=== PATIENT | male | born 1965 | race Caucasian/White ===

== ENCOUNTER 2016-05-26 18:00 | Emergency (ER) | payer BC ==
[~2016-05-26] VITALS: Ht 160 cm; Wt 87.6 kg
[2016-05-26 18:02] VITALS: TEMP 36.6; Ht 160 cm; Wt 87.6 kg
--- NOTE | 2016-05-26 18:20 | EMERGENCY ROOM VISIT NOTE ---
History Report prepared by Mark: Zia Hathaway Under the Supervision of: Dr. Dewayne Roberts D.O. First contact with patient: 18:04 Chief Complaint: HEAD PAIN Stated Complaint: STABBING PAIN IN HEAD, FEVER History of Present Illness The patient is a 50 year old male who presents to the Emergency Room with complaints of an intermittent "stabbing" pain in the left side of his head/ rastafari that began 7 days prior to arrival. The patient states that his headache comes on suddenly and only lasts a couple of seconds. He claims that his symptoms began 8 days ago when he started to develop flu-like symptoms. His symptoms began with chills and a slight fever. His fever has persistent since last Wednesday, and his symptoms caused him to take 3 days off of work last week. The patient went to [facility] last night where he had a fever of 101. The physician there stated he may have Temporal Arteritis. He states that Ibuprofen has been improving his pain over the past week. The patient denies any recent neck stiffness, rashes, weakness in the arms/legs, or vision trouble. He is not experiencing his head pain currently. Source of History: patient Onset: 7 days [employer] Position: head Quality: stabbing Timing: intermittent Modifying Factors (Relieving): ibuprofen Associated Symptoms: No neck pain, No numbness, No rash, No weakness Review of Systems See HPI for pertinent positives & negatives. A total of 10 systems reviewed and were otherwise negative. Past Medical & Surgical No pertinent past medical/surgical histories. Family History Cancer Diabetes mellitus Social History Smoking Status: Never Smoker Drug Use: none Marital Status: single Housing Status: lives alone Occupation Status: employed Current/Historical Medications Scheduled Omeprazole (Prilosec), 20 MG PO DAILY Prednisone (Prednisone Tab), 60 MG PO DAILY Allergies Coded Allergies: No Known Allergies (Unverified , 05/26/16) Physical Exam Vital Signs Date Time Temp Pulse Resp B/P Pulse Ox O2 Delivery O2 Flow Rate FiO2 05/26/16 19:54 80 20 171/118 98 05/26/16 18:02 36.6 119 18 187/109 96 Room Air Physical Exam GENERAL: Patient is awake, alert, and in no acute distress. Patient is resting comfortably and showing no signs of anxiety EYES: The conjunctivae are clear. The pupils are round and reactive. EARS, NOSE, MOUTH AND THROAT: The nose is without any evidence of any deformity. Mucous membranes are moist tongue is midline NECK: The neck is nontender and supple. RESPIRATORY: Normal respiratory effort is noted there is no evidence of wheezing rhonchi or rales CARDIOVASCULAR: Regular rate and rhythm noted there no murmurs rubs or gallops normal S1 normal S2 GASTROINTESTINAL: The abdomen is soft. Bowel sounds are present in all quadrants. Abdomen is nontender MUSCULOSKELETAL/EXTREMITIES: There is no evidence of gross deformity full range of motion is noted in the hips and shoulders SKIN: There is no obvious evidence of any rash. There are no petechiae, pallor or cyanosis noted. NEUROLOGIC: Patient is awake alert and oriented x3 strength is symmetric patellar reflexes are 2+ bilaterally Medical Decision & Procedures ER Provider Diagnostic Interpretation: X ray results and stated below per my interpretation and radiology interpretation. Other radiology results per my review and radiologist interpretation: CT OF THE HEAD WITHOUT CONTRAST CLINICAL HISTORY: Left-sided headache. COMPARISON STUDY: No previous studies for comparison. CT DOSE: 537.48 mGy.cm TECHNIQUE: Helical axial images of the head were obtained without IV contrast. Automated exposure control was utilized for the study. FINDINGS: No acute intracranial hemorrhage, midline shift or mass effect is present. Ventricular system is normal. The basilar cisterns are patent. There are no extra-axial collections. Huddleston-white differentiation is maintained. There are no findings to suggest acute dural sinus thrombosis or acute territorial infarct. No calvarial abnormalities are present. Visualized portions of the sinuses and mastoid air cells are clear. IMPRESSION: No acute intracranial findings. Electronically signed by: Tony Lemon M.D. 05/26/2016 7:02 PM Dictated Date/Time: 05/26/2016 6:58 PM Laboratory Results 05/26/16 18:30 Red Blood Count 4.28, Mean Corpuscular Volume 90.9, Mean Corpuscular Hemoglobin 32.0, Mean Corpuscular Hemoglobin Concent 35.2, Mean Platelet Volume 10.6, Neutrophils (%) (Auto) 63.2, Lymphocytes (%) (Auto) 21.2, Monocytes (%) (Auto) 13.3, Eosinophils (%) (Auto) 1.8, Basophils (%) (Auto) 0.2, Neutrophils # (Auto ) 5.49, Lymphocytes # (Auto) 1.85, Monocytes # (Auto) 1.16, Eosinophils # (Auto ) 0.16, Basophils # (Auto) 0.02 05/26/16 18:30 Test 05/26/16 18:30 White Blood Count 8.71 K/uL (4.8-10.8) Red Blood Count 4.28 M/uL (4.7-6.1) Hemoglobin 13.7 g/dL (14.0-18.0) Hematocrit 38.9 % (42-52) Mean Corpuscular Volume 90.9 fL (80-100) Mean Corpuscular Hemoglobin 32.0 pg (25-34) Mean Corpuscular Hemoglobin Concent 35.2 g/dl (32-36) Platelet Count 335 K/uL (130-400) Mean Platelet Volume 10.6 fL (7.4-10.4) Neutrophils (%) (Auto) 63.2 % Lymphocytes (%) (Auto) 21.2 % Monocytes (%) (Auto) 13.3 % Eosinophils (%) (Auto) 1.8 % Basophils (%) (Auto) 0.2 % Neutrophils # (Auto) 5.49 K/uL (1.4-6.5) Lymphocytes # (Auto) 1.85 K/uL (1.2-3.4) Monocytes # (Auto) 1.16 K/uL (0.11-0.59) Eosinophils # (Auto) 0.16 K/uL (0-0.5) Basophils # (Auto) 0.02 K/uL (0-0.2) RDW Standard Deviation 41.7 fL (36.4-46.3) RDW Coefficient of Variation 12.6 % (11.5-14.5) Immature Granulocyte % (Auto) 0.3 % Immature Granulocyte # (Auto) 0.03 K/uL (0.00-0.02) Erythrocyte Sedimentation Rate 80 mm/hr (0-14) Anion Gap 10.0 mmol/L (3-11) Est Creatinine Clear Calc Drug Dose 84.5 ml/min Estimated GFR () 99.8 Estimated GFR (Non- 86.2 BUN/Creatinine Ratio 11.1 (10-20) Calcium Level 9.2 mg/dl (8.5-10.1) Total Bilirubin 0.5 mg/dl (0.2-1) Direct Bilirubin 0.2 mg/dl (0-0.2) Aspartate Amino Transf (AST/SGOT) 20 U/L (15-37) Alanine Aminotransferase (ALT/SGPT) 37 U/L (12-78) Alkaline Phosphatase 93 U/L (45-117) C-Reactive Protein 9.21 mg/dl (0-0.29) Total Protein 8.1 gm/dl (6.4-8.2) Albumin 3.6 gm/dl (3.4-5.0) Laboratory results per my review. Medications Administered Medications (Trade) Dose Ordered Sig/Wilfrid Route Start Time Stop Time Status Last Admin Dose Admin Prednisone (PredniSONE TAB) 60 mg NOW STAT PO 05/26/16 19:30 05/26/16 19:31 DC 05/26/16 19:53 60 MG Pantoprazole Sodium (Protonix Tab) 40 mg NOW STAT PO 05/26/16 19:30 05/26/16 19:31 DC 05/26/16 19:53 40 MG ED Course 1804: The patient was evaluated in room A9. A complete history and physical examination were performed. 1929: Ordered Protonix 40 mg PO, Prednisone 60 mg PO. 1935: Upon reevaluation, the patient is resting comfortably. I discussed the results and treatment plan with him. He verbalized agreement of the treatment plan. The patient was discharged home. Medical Decision The patient's history was concerning for headache. Differential diagnosis: Etiologies such as migraine headache, meningitis, sinusitis, CO exposure, ICH, SAH, infection, tumor, headache, sinus thrombosis, arterial dissection, as well as others were entertained. Nursing notes reviewed. The patient is a 50-year-old male who presented to the emergency department for evaluation of headache. The patient had a gradual onset of headache which was reproducible with palpation over the left temporal artery. The patient was seen at [facility] initially was told to go to the emergency department but he waited another day before coming to the emergency department. He has no visual complaints or focal neurologic deficits. His pain is even minimal this time. He was found have an elevated sedimentation rate. I discussed the patient's laboratory and radiographic studies with him. I discussed follow-up with the patient and arranged follow-up with the on-call general surgeon. He was started on a course of steroids. He was encouraged to return the emergency Department immediately if symptoms change worsen or the need arises. Otherwise she was encouraged to follow-up with the general surgeon for temporal artery biopsy. Impression Primary Impression: Left-sided headache Additional Impression: suspected temporal arteritis Scribe Attestation The scribe's documentation has been prepared under my direction and personally reviewed by me in its entirety. I confirm that the note above accurately reflects all work, treatment, procedures, and medical decision making performed by me. Departure Information Dispostion Home / Self-Care Prescriptions Prednisone (Prednisone Tab) 20 Mg Tab 60 MG PO DAILY, #90 TAB decrease dose to 50 mg PO Daily after 2 weeks Prov: Dewayne Roberts, DO 05/26/16 Omeprazole (Prilosec) 20 Mg Capcr 20 MG PO DAILY, #30 CAP Prov: Dewayne Roberts, DO 05/26/16 Referrals No Doctor, Assigned (PCP) Forms HOME CARE DOCUMENTATION FORM, IMPORTANT VISIT INFORMATION, WORK / SCHOOL INSTRUCTIONS Patient Instructions My [facility] Additional Instructions Call the general surgeon to schedule a follow-up appointment for this week. I would also recommend scheduling an appointment with a primary care physician as well this week. I would recommend starting the prednisone 60 milligrams every day for 2 weeks. Decrease this dose to 50 milligrams a day for 2 more weeks. You 'll need to be on the steroids for even longer and I would recommend further tapering to be done by the general surgeon once you have been seen. Continue all other medications as prescribed. Rest and avoid any strenuous activity. Return to the emergency department immediately if symptoms change worsen or the need arises. Specifically if he develop any other neurologic symptoms such as vision loss or weakness in the arms or legs. Problem Qualifiers
[2016-05-26 18:48] LABS: BASO % 0.2 %; BASO ABS # 0.02 K/uL (0-0.2); COMPLETE YES; EOS % 1.8 %; HEMATOCRIT 38.9 % (42-52); IG% 0.3 %; LYMPH % 21.2 %; LYMPH ABS # 1.85 K/uL (1.2-3.4); MEAN CELL VOLUME 90.9 fL (80-100); MEAN CORPUSCULAR HGB CONC 35.2 g/dl (32-36); MEAN PLATELET VOLUME 10.6 fL (7.4-10.4); MONO % 13.3 %; NEUT % 63.2 %; PLATELET COUNT 335 K/uL (130-400); RED BLOOD COUNT 4.28 M/uL (4.7-6.1); WHITE BLOOD COUNT 8.71 K/uL (4.8-10.8)
--- NOTE | 2016-05-26 19:04 | DIAGNOSTIC IMAGING REPORT ---
CT OF THE HEAD WITHOUT CONTRAST CLINICAL HISTORY: Left-sided headache. COMPARISON STUDY: No previous studies for comparison. CT DOSE: 537.48 mGy.cm TECHNIQUE: Helical axial images of the head were obtained without IV contrast. Automated exposure control was utilized for the study. FINDINGS: No acute intracranial hemorrhage, midline shift or mass effect is present. Ventricular system is normal. The basilar cisterns are patent. There are no extra-axial collections. Huddleston-white differentiation is maintained. There are no findings to suggest acute dural sinus thrombosis or acute territorial infarct. No calvarial abnormalities are present. Visualized portions of the sinuses and mastoid air cells are clear. IMPRESSION: No acute intracranial findings. Electronically signed by: Tony Lemon M.D. 05/26/2016 7:02 PM Dictated Date/Time: 05/26/2016 6:58 PM
[2016-05-26 19:07] LABS: BUN/CREATININE RATIO 11.1 (10-20); CALCIUM 9.2 mg/dl (8.5-10.1)
[2016-05-26 19:10] LABS: C-REACTIVE PROTEIN 9.21 mg/dl (0-0.29)
[2016-05-26] MEDS ORDERED: PANTOprazole SOD 40 MG TAB PO STA (19:30)
[2016-05-26] MEDS ORDERED: PRED20TA2 PO (19:34)
[2016-05-26] MEDS ORDERED: PRLSR20 PO (19:34)
[2016-05-26 19:54] VITALS: BP 171/118; PULSE 80; O2SAT 98
== END 2016-05-26 20:15 | disposition home or self-care (01) ==
LOC: C.EDB 18:01 → C.EDA 20:15
DX: R51 Headache (principal); Z83.3 Family history of diabetes mellitus

== ENCOUNTER 2016-05-29 12:21 | Emergency (ER) | payer BC ==
[~2016-05-29] VITALS: Ht 160 cm; Wt 87.2 kg
[~2016-05-29 12:21] MED LIST: PRED20TA2 PO; PRLSR20 PO
[2016-05-29 12:25] VITALS: TEMP 36.8; Ht 160 cm; Wt 87.2 kg
[2016-05-29] MEDS ORDERED: MULTTAB58 PO (12:47)
[2016-05-29 14:47] VITALS: BP 180/110; PULSE 78; O2SAT 98
--- NOTE | 2016-05-29 15:03 | EMERGENCY ROOM VISIT NOTE ---
History Report prepared by Mark: Danii Soni Under the Supervision of: Dr. Alvin Keller M.D. First contact with patient: 14:06 Chief Complaint: ALLERGIC REACTION Stated Complaint: REACTION TO PREDISONE, IRREGULAR HEARTBEAT Nursing Triage Summary: Pt presents ambulatory to triage stating he is having an adverse rxn to prednisone. Pt states, "I have an irregular heartbeat, sob. It started when your physician gave me prednisone on evening. It started then. I'm basically just here to say I'm not taking this shit anymore, but I know I can't stop cold turkey." History of Present Illness The patient is a 50 year old male who presents to the Emergency Room with complaints of a sudden irregular heartbeat that started this morning. He states that while he was at work this morning he felt like "he drank 15 cups of coffee. " The patient states that he felt "jumpy" and irritable. He could also feel pauses occurring between heartbeats. The patient states that he started to experience an intermittent fever 5-6 days ago. He was also experiencing chills, headache, and body aches. The headache was concentrated to the left side of his head and was intermittently sharp. He states it was not something that he has never experienced in the past though. The fever persisted so he went to [facility] 4 days ago. The physician there expressed concern that the patient might have temporal arteritis and told him to come into the ED for a sedimentation rate. They also told him that he would need a biopsy. The patient came into the ED 3 days ago and had his sedimentation rate measured along with a CT scan. He states that his sedimentation rate was "positive" from what he could tell, but he is unsure of the results of the CT scan. He was started on prednisone and has taken 3 doses of 60 mg since then. The patient states that he felt well prior to being started on Prednisone and that he would like to stop taking it, but he was unsure of if he could stop taking it "cold turkey." He adds that he has never been on Prednisone in the past and he does not like the way it is making him feel. The patient states that he felt well yesterday and that he did not experience any of his chronic shoulder pain from rotator cuff problems. He states that all of his other symptoms have been resolved since prior to starting prednisone and he was able to relieve them with ibuprofen. He denies any current headache, fevers, neck pain, and any pain in his lower extremities. He began experiencing "scratchiness" in his throat yesterday, but he states that is normal for him once he gets over flu-like symptoms. The patient denies any history of arthritis. He adds that he already has an appointment with his PCP scheduled for Wednesday. Source of History: patient Onset: this morning Position: chest Quality: other (irregular heartbeat ) Timing: other (sudden) Associated Symptoms: + sorethroat (scratchiness), No fevers, No headache, No neck pain Note: no pain in lower extremities Review of Systems All systems have been listed, reviewed, and are negative other than those previously mentioned. Please see Additional Medical History Sheet. Past Medical & Surgical Medical Problems: (1) No significant past medical history Family History Cancer Diabetes mellitus Social History Smoking Status: Never Smoker Drug Use: none Marital Status: single Housing Status: lives alone Occupation Status: employed Current/Historical Medications Scheduled Multiple Vitamin (Multivitamin), 1 TAB PO DAILY Omeprazole (Prilosec), 20 MG PO DAILY Prednisone (Prednisone Tab), 60 MG PO DAILY Allergies Coded Allergies: No Known Allergies (Unverified , 05/29/16) Physical Exam Vital Signs Date Time Temp Pulse Resp B/P Pulse Ox O2 Delivery O2 Flow Rate FiO2 05/29/16 14:47 78 18 180/110 98 05/29/16 14:20 100 14 183/119 92 Room Air 05/29/16 13:08 100 20 166/107 92 Room Air 05/29/16 12:42 104 05/29/16 12:25 95 Room Air 05/29/16 12:25 36.8 115 18 190/113 95 Room Air Physical Exam GENERAL: Patient awake, alert, oriented x 3. Patient follows commands. Patient does not appear toxic. Patient is adequately hydrated and well- nourished. SKIN: No erythema, pallor, cyanosis or rash HEENT: Normal head, pupils equal, reactive to light and accommodation. No tenderness over temporal arteries. Ears normal. Throat has slight erythema, no pus. Neck: Without adenopathy, no neck vein distention. LUNGS: Clear to auscultation. No wheezes, no rales, no rhonchi. HEART: Rapid regular rate without murmurs. ABDOMEN: No masses, no rebound, no hepatomegaly or splenomegaly. EXTREMITIES: No signs of trauma. No pedal or pretibial edema. No calf or thigh tenderness. NEUROLOGIC: Cranial nerves II-XII within normal limits. No gross motor sensory function deficits. Medical Decision & Procedures ECG Indication: palpitations Rate (beats per minute): 108 Rhythm: sinus tachycardia Findings: nonspecific-ST abn, left axis deviation, no ectopy, other (possible left atrial enlargement) ED Course 1406: Past medical records reviewed. The patient was evaluated in room A11. A complete history and physical examination was performed. 1430: Upon reevaluation, the patient appeared to have improvement of his symptoms. I discussed today's findings with him. He verbalized agreement of the treatment plan. He was discharged home. Medical Decision Nurses notes reviewed. Medical history sheet reviewed. Differential diagnosis includes but is not limited to: temporal arteritis, influenza, other viral illness, hypertension, reaction to steroids. 50-year-old male with a tentative diagnosis of temporal arteritis is now currently on high-dose prednisone. His initial symptoms have all resolved. He now feels tachycardic and somewhat hyper. His blood pressure is elevated. He believes this is all secondary to prednisone. The patient is considering having a temporal artery biopsy. The patient has had a fairly extensive workup. The patient and I both agree that he does not need further blood work or imaging studies at this time. We've agreed to cut his prednisone down to 20 mg a day for 2 days and then stop. I believe that his hypertension and tachycardia are secondary to the prednisone. He is to follow-up with his family physician. Impression Primary Impression: Medication reaction Scribe Attestation The scribe's documentation has been prepared under my direction and personally reviewed by me in its entirety. I confirm that the note above accurately reflects all work, treatment, procedures, and medical decision making performed by me. Departure Information Dispostion Home / Self-Care Referrals No Doctor, Assigned (PCP) Forms HOME CARE DOCUMENTATION FORM, IMPORTANT VISIT INFORMATION Patient Instructions My [facility] Additional Instructions Decrease prednisone to 20 mg a day for 2 days then stop prednisone. Continue all of your other medications as prescribed. Follow-up with your family physician on Wednesday. Problem Qualifiers Primary Impression: Medication reaction Encounter type: initial encounter Qualified Codes: T88.7XXA - Unspecified adverse effect of drug or medicament, initial encounter
== END 2016-05-29 14:47 | disposition home or self-care (01) ==
LOC: C.EDB 12:24 → C.EDA 14:47
DX: R00.0 Tachycardia, unspecified (principal); I10 Essential (primary) hypertension; T38.0X5A Adverse effect of glucocorticoids and synthetic analogues, initial encounter; Z83.3 Family history of diabetes mellitus; Z79.899 Other long term (current) drug therapy

== ENCOUNTER → 2016-06-01 | Outpatient (CLI) | payer BC ==
[~2016-06-01] MED LIST changes: +MULTTAB58 PO
== END | disposition home or self-care (01) ==
LOC: C.LAB1850 09:47
PROVIDERS: ATTEND Internal Medicine
DX: R70.0 Elevated erythrocyte sedimentation rate (principal)

== ENCOUNTER → 2017-09-23 | Outpatient (CLI) | payer OTHER ==
[~2017-09-23] MED LIST changes: -PRED20TA2 PO; -PRLSR20 PO
== END | disposition home or self-care (01) ==
LOC: C.LAB 15:09
PROVIDERS: ATTEND Physician Assistant
DX: M25.472 Effusion, left ankle (principal)

== ENCOUNTER 2021-06-03 09:50 | Inpatient (IN) ==
--- NOTE | 2021-06-03 10:20 | Emergency Department Note ---
Impression & Plan Atrial fibrillation with rapid ventricular response, Breath shortness, Acute dehydration ED Provider Note NAME: CARLY CALVO AGE: 55 SEX: M : 1965 ARRIVES VIA: Walk-In INFORMANT: Patient ED PROVIDER(S): Munir Meredith DO CHIEF COMPLAINT: Shortness of breath HPI: Patient is a 48 male with a past medical history of cardiomyopathy, hypertension, SIGIFREDO, A. fib, as well as CHF who presents the ER for shortness of breath which has been present for the past 3 weeks. Patient denies any chest pain. Shortness of breath comes and goes but is worse with up moving around. He is also been waking up at night feeling short of breath when sleeping. No belly pain, nausea, vomiting, or diarrhea. No dysuria, urgency, or frequency. He is taking his Lasix but feels like it is not working. 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 No other exacerbating or remitting factors. ROS: See above HPI for pertinent positives & negatives. A total of 10 systems reviewed and were otherwise negative. PAST MEDICAL HISTORY:See Below PAST SURGICAL HISTORY:See Below FAMILY HISTORY:See Below SOCIAL HISTORY:See Below HOME MEDICATIONS:See Below ALLERGIES:See Below VITALS:See Below PHYSICAL EXAMINATION: GENERAL: Sitting up in bed, alert, well appearing, well nourished, no distress, non-toxic EYE EXAM: normal conjunctiva. PERRL and EOM's grossly intact. OROPHARYNX: no exudate, no erythema, lips, buccal mucosa, and tongue normal and mucous membranes are moist NECK: supple, no nuchal rigidity, no adenopathy, non-tender LUNGS: Clear to auscultation. Normal chest wall mechanics HEART: Tachycardic and irregular regular, S1 normal and S2 normal ABDOMEN: abdomen soft, non-tender, normo-active bowel sounds, no masses, no rebound or guarding. UPPER EXTREMITIES: upper extremities are grossly normal. LOWER EXTREMITIES: No pitting edema. NEURO EXAM: Normal sensorium, cranial nerves II-XII grossly intact, normal speech, no gross weakness of arms, no gross weakness of legs. MEDICAL DECISION MAKING: Patient is a 55-year-old male who presents ER for above-stated complaint. IV was established blood was obtained. Labs show mild leukocytosis 11.7 thousand. Hemoglobin elevated at 18 likely secondary to dehydration. BMP with mild hyponatremia and hyperkalemia with a potassium of 5.4. There is mild acidosis with a CO2 of 18. LFTs were unremarkable. Troponin was detectable at 0.04. Lipase was normal. Covid negative. Chest x-ray was clean. He was given IV fluids. He was given 2 dose of IV Lopressor and his heart rate trended down from the 130s to the high 90s. He was updated bedside and discussed with the hospitalist for further evaluation. Triage Nursing notes reviewed. Limited review of prior medical records performed Vital Signs: reviewed and remarkable for tachycardic and hypotensive Differential diagnosis: Differential diagnoses includes but is not limited to acute coronary syndrome, myocardial infarction, pericarditis, pulmonary embolus, aortic dissection, pneumonia, pneumothorax, musculoskeletal, shingles, esophageal. ER treatment provided: See below Diagnostics interpreted by me: ECG: A. fib RVR rate of 130 Left axis No PVCs QTC 426 Poor baseline Cardiac Monitoring: An order was placed for continuous cardiac monitoring. The monitor shows a rate of 135 with A. fib rhythm. Laboratory studies: As stated above and show below. Imaging studies: Portable AP upright 1 view of the chest was unremarkable Consultation(s): Discussed with Dr. Hawkins for further evaluation Procedures: none Critical Care: I have personally spent 32 minutes of critical care time in the direct management of this patient. This includes bedside care, interpretation of diagnostic studies, and testing, discussion with consultants, patient, and family members, and other required patient management activities. This 32 minutes is in excess of all separately billable procedures. Past Med/Surg History Medical History Atrial fibrillation with RVR follows with Dr. Davis (dx 1 year ago) Cardiomyopathy Congestive heart failure (mild) Gout hx History of cardioversion ~2019. successful for several days. Currently in A.Fib HTN (hypertension), benign On anticoagulant therapy Pulmonary nodule Systolic congestive heart failure Surgical History History of inguinal hernia repair, bilateral as a child History of tonsillectomy History of tooth extraction History of wisdom tooth extraction Status post subacromial decompression bilateral shoulders Family History Father Diabetes Myocardial infarction Mother Myocardial infarction Breast cancer Sister Breast cancer Sister Breast cancer Brother Diabetes Aunt Breast cancer Ovarian cancer Denies family history of Prostate cancer Colorectal cancer Social History Smoking Status: Never smoker Second Hand Exposure: No; Hx Alcohol Use: Yes Alcohol type: beer Alcohol Intake Frequency: 2-4 x/Month Hx Substance Use: No Preferred Language: Croatian Communication Ability: Effective Staffing Program Manager Required: No Beliefs That Will Affect Care: None marital status: Current Living Situation: Family Current Living Situation Comment: with son current occupational status: employed 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 [employer] Feels Safe at Home: Yes Childhood Exposure to Second-Hand Smoke: No Dental Care, Regularly: Yes Physical Activity Frequency: 3-4 Times per Week Seatbelt Use: always Sunscreen Use: Yes Assistive Devices: Glasses Allergies Allergies Allergy/AdvReac Type Severity Reaction Status Date / Time No Known Allergies Allergy Verified 06/03/21 12:05 Home Meds Home Medications Medication Instructions Recorded Confirmed [id number] 333 mg-133 1 tab PO QAM 06/03/21 06/03/21 mg-5 mg tablet furosemide 20 mg tablet 20 mg PO DAILY PRN 06/03/21 06/03/21 multivitamin 1 tab PO QAM 06/03/21 06/03/21 rivaroxaban 20 mg tablet (Xarelto) 20 mg PO QAM 06/03/21 06/03/21 spironolactone 25 mg tablet 25 mg PO QAM 06/03/21 06/03/21 Previous Rx's Medication Instructions Recorded telmisartan 40 mg tablet (Micardis) 40 mg PO QAM #90 tab 07/30/20 metoprolol succinate 100 mg 100 mg PO QAM #90 tab 02/07/21 tablet,extended release 24 hr Results & Data (ED) Vital Signs Vital Signs - 24 hr 06/03/21 09:53 06/03/21 10:25 06/03/21 10:30 Temperature 36.5 C Temperature Source Oral Pulse Rate 102 H 121 H Pulse Rate [Radial] 112 H Pulse Rate from SpO2 Sensor Respiratory Rate 20 17 Respiratory Effort / Characteristics Respiratory Depth Normal Respiratory Pattern Regular Blood Pressure 99/55 L 106/87 Blood Pressure [Right Arm] 108/87 Blood Pressure Mean 69 Blood Pressure Mean [Right Arm] 94 Blood Pressure Position [Right Arm] Pulse Oximetry 98 96 Oxygen Delivery Method Room Air Room Air Sepsis Recent Fever Within 48 Hours No Sepsis New/Unexplained Change in Mental Status N/A Sepsis Action Taken by Nursing No Action Required 06/03/21 10:35 06/03/21 10:40 06/03/21 11:00 Temperature Temperature Source Pulse Rate 115 H 120 H Pulse Rate [Radial] 115 H 99 H Pulse Rate from SpO2 Sensor 111 H Respiratory Rate 20 20 17 Respiratory Effort / Characteristics Non-Labored Non-Labored Respiratory Depth Normal Normal Respiratory Pattern Regular Blood Pressure 101/69 88/72 L Blood Pressure [Right Arm] 101/69 94/77 L Blood Pressure Mean 77 Blood Pressure Mean [Right Arm] 79 82 Blood Pressure Position [Right Arm] Lying Lying Pulse Oximetry 98 97 94 Oxygen Delivery Method Room Air Room Air Sepsis Recent Fever Within 48 Hours Sepsis New/Unexplained Change in Mental Status Sepsis Action Taken by Nursing 06/03/21 11:30 06/03/21 12:10 06/03/21 12:30 Temperature Temperature Source Pulse Rate 108 H 114 H 107 H Pulse Rate [Radial] Pulse Rate from SpO2 Sensor 105 H 121 H 100 H Respiratory Rate 16 15 3 L Respiratory Effort / Characteristics Respiratory Depth Respiratory Pattern Blood Pressure 100/84 101/85 124/82 Blood Pressure [Right Arm] Blood Pressure Mean 89 90 96 Blood Pressure Mean [Right Arm] Blood Pressure Position [Right Arm] Pulse Oximetry 95 98 99 Oxygen Delivery Method Room Air Room Air Room Air Sepsis Recent Fever Within 48 Hours Sepsis New/Unexplained Change in Mental Status Sepsis Action Taken by Nursing 06/03/21 13:00 06/03/21 14:00 Temperature Temperature Source Pulse Rate 112 H 103 H Pulse Rate [Radial] Pulse Rate from SpO2 Sensor 121 H 115 H Respiratory Rate 22 Respiratory Effort / Characteristics Respiratory Depth Respiratory Pattern Blood Pressure 113/88 100/83 Blood Pressure [Right Arm] Blood Pressure Mean 96 88 Blood Pressure Mean [Right Arm] Blood Pressure Position [Right Arm] Pulse Oximetry 95 98 Oxygen Delivery Method Room Air Sepsis Recent Fever Within 48 Hours Sepsis New/Unexplained Change in Mental Status Sepsis Action Taken by Nursing Laboratory Data Result diagrams: 06/03/21 10:14 06/03/21 12:09 Lab Results 06/03/21 06/03/21 06/03/21 Range/Units 10:14 10:14 10:14 WBC 11.75 H (4.8-10.8) K/uL RBC 5.25 (4.7-6.1) M/uL Hgb 18.1 H (14.0-18.0) g/dL Hct 52.9 H (42-52) % MCV 100.8 H (80-100) fL MCH 34.5 H (25-34) pg MCHC 34.2 (32-36) g/dL RDW Std Deviation 52.4 H (36.4-46.3) fL RDW Coeff of Pat 14.3 (11.5-14.5) % Plt Count 235 (130-400) K/uL MPV 11.6 H (7.4-10.4) fL Immature Gran % (Auto) 0.4 % Neut % (Auto) 57.9 % Lymph % (Auto) 27.5 % [place] % (Auto) 12.3 % Eos % (Auto) 1.6 % Baso % (Auto) 0.3 % Neut # (Auto) 6.80 H (1.4-6.5) K/uL Lymph # (Auto) 3.23 (1.2-3.4) K/uL [place] # (Auto) 1.45 H (0.11-0.59) K/uL Eos # (Auto) 0.19 (0-0.5) K/uL Baso # (Auto) 0.03 (0-0.2) K/uL Immature Gran # (Auto) 0.05 H (0.00-0.02) K/uL Sodium 133 L (136-145) mmol/L Potassium TNP Chloride 102 (98-107) mmol/L Carbon Dioxide 18 L (21-32) mmol/L Anion Gap 13 H (3-11) BUN 25 H (6-23) mg/dl Creatinine 1.23 (0.6-1.4) mg/dl Est Cr Clr Drug Dosing 60.2 ml/min Est GFR ( Amer) 75.1 ml/min Est GFR (Non-Af Amer) 64.8 ml/min BUN/Creatinine Ratio 20.3 H (10-20) Glucose 128 H (70-99(Fasting)) mg/dl Calcium 9.9 (8.5-10.1) mg/dl Total Bilirubin 1.4 H (0.2-1.0) mg/dl AST TNP ALT 27 (7-52) U/L Alkaline Phosphatase 93 (34-104) U/L Troponin I 0.04 (0-0.04) ng/ml B-Natriuretic Peptide 1512 H (0-100) pg/ml Total Protein 8.1 (6.0-8.3) gm/dl Albumin 4.5 (3.4-5.0) gm/dl Globulin 3.6 (2.5-4.0) gm/dl Albumin/Globulin Ratio 1.3 (0.9-2) Lipase 32 (11-82) U/L SARS-CoV-2, RNA, NAAT (NEGATIVE) 06/03/21 06/03/21 Range/Units 10:29 12:09 WBC (4.8-10.8) K/uL RBC (4.7-6.1) M/uL Hgb (14.0-18.0) g/dL Hct (42-52) % MCV (80-100) fL MCH (25-34) pg MCHC (32-36) g/dL RDW Std Deviation (36.4-46.3) fL RDW Coeff of Pat (11.5-14.5) % Plt Count (130-400) K/uL MPV (7.4-10.4) fL Immature Gran % (Auto) % Neut % (Auto) % Lymph % (Auto) % [place] % (Auto) % Eos % (Auto) % Baso % (Auto) % Neut # (Auto) (1.4-6.5) K/uL Lymph # (Auto) (1.2-3.4) K/uL [place] # (Auto) (0.11-0.59) K/uL Eos # (Auto) (0-0.5) K/uL Baso # (Auto) (0-0.2) K/uL Immature Gran # (Auto) (0.00-0.02) K/uL Sodium (136-145) mmol/L Potassium 5.4 H Chloride (98-107) mmol/L Carbon Dioxide (21-32) mmol/L Anion Gap (3-11) BUN (6-23) mg/dl Creatinine (0.6-1.4) mg/dl Est Cr Clr Drug Dosing ml/min Est GFR ( Amer) ml/min Est GFR (Non-Af Amer) ml/min BUN/Creatinine Ratio (10-20) Glucose (70-99(Fasting)) mg/dl Calcium (8.5-10.1) mg/dl Total Bilirubin (0.2-1.0) mg/dl AST 19 ALT (7-52) U/L Alkaline Phosphatase (34-104) U/L Troponin I (0-0.04) ng/ml B-Natriuretic Peptide (0-100) pg/ml Total Protein (6.0-8.3) gm/dl Albumin (3.4-5.0) gm/dl Globulin (2.5-4.0) gm/dl Albumin/Globulin Ratio (0.9-2) Lipase (11-82) U/L SARS-CoV-2, RNA, NAAT NEGATIVE (NEGATIVE) Administered Medications Metoprolol Tartrate (Metoprolol Tartrate 1 Mg/Ml Vial) 5 mg IV Q5M PRN PRN Reason: Tachycardia Stop: 07/03/21 10:16 Last Admin: 06/03/21 10:35 Dose: 5 mg Documented by: [id number] Admin: 06/03/21 10:25 Dose: 5 mg Documented by: [id number] Discontinued Medications Sodium Chloride (Nss) 250 mls @ 999 mls/hr IV .Q16M ONE Stop: 06/03/21 11:19 Last Infusion: 06/03/21 11:37 Dose: 0 mls/hr Documented by: [id number] Admin: 06/03/21 11:20 Dose: 999 mls/hr Documented by: [id number] Imaging Data Radiologist's Impression: Chest X-Ray 06/03/21 10:17 XR chest 1V portable HISTORY: 55 years-old Male Chest Pain acute atypical chest pain COMPARISON: Chest CT 06/16/2018, chest radiograph 05/12/2018 TECHNIQUE: Portable AP view of the chest FINDINGS: Moderate enlargement of the cardiac silhouette. No pneumothorax, pleural effusion, airspace consolidation or overt pulmonary edema. The bones of the chest appear grossly intact. Healed chronic fracture deformity of the proximal right humerus. IMPRESSION: Cardiomegaly without acute process. ACT 112: Negative or not required by law. The above report was generated using voice recognition software. It may contain grammatical, syntax or spelling errors. Electronically signed by: Ovidio Luna M.D. 06/03/2021 10:33 AM Discharge Plan Visit Data Chief Complaint: Shortness of Breath/Dyspnea Stated Complaint: SEVERE SOB ED Provider: Munir Meredith Discharge Problem: Atrial fibrillation with rapid ventricular response, Breath shortness, Acute dehydration Patient Disposition: Admitted As Inpatient Discharge Instructions Interventions: ED Discharge Assessment Last Done: 06/03/21 14:21
[2021-06-03] MEDS: METOPROLOL TARTRATE 1 MG/ML VIAL IV PRN ×2 (10:25→10:35)
--- NOTE | 2021-06-03 10:34 | XRay Report ---
XR chest 1V portable HISTORY: 55 years-old Male Chest Pain acute atypical chest pain COMPARISON: Chest CT 06/16/2018, chest radiograph 05/12/2018 TECHNIQUE: Portable AP view of the chest FINDINGS: Moderate enlargement of the cardiac silhouette. No pneumothorax, pleural effusion, airspace consolida tion or overt pulmonary edema. The bones of the chest appear grossly intact. Healed chronic fracture deformity of the proximal right humerus. IMPRESSION: Cardiomegaly without acute process. ACT 112: Negative or not required by law. The above report was generated using voice recognition software. It may contain grammatical, syntax o r spelling errors. Electronically signed by: Ovidio Luna M.D. 06/03/2021 10:33 AM
[2021-06-03 10:35] LABS: Basophils # (auto) 0.03 K/uL (0-0.2); Basophils % (auto) 0.3 %; Eosinophils # (auto) 0.19 K/uL (0-0.5); Eosinophils % (auto) 1.6 %; Hematocrit (blood only) 52.9 % (42-52); Hemoglobin 18.1 g/dL (14.0-18.0); Immature Granulocytes # (auto) 0.05 K/uL (0.00-0.02); Immature Granulocytes % (auto) 0.4 %; Lymphocytes # (auto) 3.23 K/uL (1.2-3.4); Lymphocytes % (auto) 27.5 %; Mean Corpuscular Hemoglobin 34.5 pg (25-34); Mean Corpuscular Hgb Conc 34.2 g/dL (32-36); Mean Corpuscular Volume 100.8 fL (80-100); Mean Platelet Volume 11.6 fL (7.4-10.4); Monocytes # (auto) 1.45 K/uL (0.11-0.59); Monocytes % (auto) 12.3 %; Neutrophils % (auto) 57.9 %; Platelet Count 235 K/uL (130-400); RDW Coefficient of Variation 14.3 % (11.5-14.5); RDW Standard Deviation 52.4 fL (36.4-46.3); Red Blood Count 5.25 M/uL (4.7-6.1); White Blood Count 11.75 K/uL (4.8-10.8)
[2021-06-03] MEDS ORDERED: SODIUM CHLORIDE 0.9% 250 ML IV ONE (11:04)
[2021-06-03 11:07] LABS: Troponin I 0.04 ng/ml (0-0.04)
--- NOTE | 2021-06-03 11:40 | Electrocardiogram Report ---
Test Reason : Blood Pressure : / mmHG Vent. Rate : 130 BPM Atrial Rate : 129 BPM P-R Int : 000 ms QRS Dur : 094 ms QT Int : 290 ms P-R-T Axes : 000 -80 087 degrees QTc Int : 426 ms Poor data quality, interpretation may be adversely affected Atrial fibrillation with rapid ventricular response Left axis deviation Septal infarct (cited on or before 14-APR-2018) Cannot rule out Inferior infarct , age undetermined Abnormal ECG When compared with ECG of 12-MAY-2018 18:12, Vent. rate has increased BY 61 BPM Questionable change in initial forces of Anterior leads Confirmed by Dewayne Beal ([id number]) on 06/03/2021 11:39:55 AM Referred By: Confirmed By:Dewayne Beal
[2021-06-03 11:47] LABS: Alanine Aminotransferase 27 U/L (7-52); Albumin Globulin Ratio 1.3 (0.9-2); Albumin Level 4.5 gm/dl (3.4-5.0); Alkaline Phosphatase 93 U/L (34-104); Anion Gap 13 (3-11); BUN Creatinine Ratio 20.3 (10-20); Bilirubin,Total 1.4 mg/dl (0.2-1.0); Blood Urea Nitrogen 25 mg/dl (6-23); Calcium 9.9 mg/dl (8.5-10.1); Carbon Dioxide 18 mmol/L (21-32); Chloride 102 mmol/L (98-107); Creatinine Clr Calc Pharmacy 60.2 ml/min; Est GFR (African American) 75.1 ml/min; Est GFR (Non-African American) 64.8 ml/min; Globulin 3.6 gm/dl (2.5-4.0); Glucose 128 mg/dl (70-99(Fasting)); Lipase 32 U/L (11-82); Sodium 133 mmol/L (136-145); Total Protein 8.1 gm/dl (6.0-8.3)
[2021-06-03 13:06] LABS: Potassium 5.4 mmol/L (3.5-5.1)
--- NOTE | 2021-06-03 14:00 | History & Physical Report ---
Date of Service June 03, 2021 Assessment & Plan (1) Atrial fibrillation with RVR: Plan: Patient was given a dose of IV metoprolol with minimal effect We will give digoxin 0.25 mg x 1 as a loading dose. Consider starting Cardizem drip if no relief with digoxin Continue oral Toprol XL at 100 mg daily We will continue Xarelto for anticoagulation Consult cardiology for further recommendations (2) Cardiomyopathy: Plan: Does not appear to be in active CHF at this time Last 2D echo is from 11/2019. Will defer to cardiology if they feel this needs to be updated as an inpatient (3) Benign essential hypertension: Plan: Current blood pressure controlled 100/84, continue to monitor History of Present Illness Chief Complaint: Shortness of breath Primary Care Provider: Christopher Parra, CHICA, MARISOL This is a 55-year-old male with past no history of atrial fibrillation, cardiomyopathy with an EF of 30-35% that presents emergency room with a chief complaint of shortness of breath. Patient is pleasant a good historian. Patient tells me he has noted some shortness of breath and, more commonly, dyspnea on exertion for the past 3 weeks. He notes he has been getting more more winded with even simple activities. He denies any infection symptoms such as fever or chills, cough. He denies any weight changes or swelling. He also denies any palpitations. He says that the dyspnea on exertion has been getting worse to the point that he can hardly perform any activities which prompted him to come to the hospital. In the emergency room, is found to be in rapid atrial fibrillation with a rate in the 130s. He was given a dose of metoprolol 5 mg IV x1 the seem to improve his rate to [id number]. At time of evaluation, patient appears to be comfortable. 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 Allergies Allergy/AdvReac Type Severity Reaction Status Date / Time No Known Allergies Allergy Verified 06/03/21 12:05 Home Medications Medication Instructions Recorded Confirmed Type telmisartan 40 mg tablet (Micardis) 40 mg PO QAM #90 tab 07/30/20 06/03/21 Rx metoprolol succinate 100 mg 100 mg PO QAM #90 tab 02/07/21 06/03/21 Rx tablet,extended release 24 hr [id number] 333 mg-133 1 tab PO QAM 06/03/21 06/03/21 History mg-5 mg tablet furosemide 20 mg tablet 20 mg PO DAILY PRN 06/03/21 06/03/21 History multivitamin 1 tab PO QAM 06/03/21 06/03/21 History rivaroxaban 20 mg tablet (Xarelto) 20 mg PO QAM 06/03/21 06/03/21 History spironolactone 25 mg tablet 25 mg PO QAM 06/03/21 06/03/21 History Past Med/Surg History Medical History Atrial fibrillation with RVR follows with Dr. Davis (dx 1 year ago) Cardiomyopathy Congestive heart failure (mild) Gout hx History of cardioversion ~2018. successful for several days. Currently in A.Fib HTN (hypertension), benign On anticoagulant therapy Pulmonary nodule Systolic congestive heart failure Surgical History History of inguinal hernia repair, bilateral as a child History of tonsillectomy History of tooth extraction History of wisdom tooth extraction Status post subacromial decompression bilateral shoulders Family History Father Diabetes Myocardial infarction Mother Myocardial infarction Breast cancer Sister Breast cancer Sister Breast cancer Brother Diabetes Aunt Breast cancer Ovarian cancer Denies family history of Prostate cancer Colorectal cancer Social History Smoking Status: Never smoker Second Hand Exposure: No; Hx Alcohol Use: Yes Alcohol type: beer Alcohol Intake Frequency: 2-4 x/Month Hx Substance Use: No Preferred Language: Malay Communication Ability: Effective Regulatory Affairs Associate Required: No Beliefs That Will Affect Care: None marital status: Current Living Situation: Family Current Living Situation Comment: with son current occupational status: employed 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 [employer] Feels Safe at Home: Yes Childhood Exposure to Second-Hand Smoke: No Dental Care, Regularly: Yes Physical Activity Frequency: 3-4 Times per Week Seatbelt Use: always Sunscreen Use: Yes Assistive Devices: Glasses Review of Systems Constitutional: no fever, no chills, no weakness, no weight loss and no weight gain Eyes: as per Subjective / HPI Respiratory: + dyspnea and + dyspnea on exertion; no cough, no chest conges tion, no pain on inspiration, no pain with cough and no wheezing Cardiovascular: no chest pain, no orthopnea, no palpitations, no lightheadedness and no edema Gastrointestinal: no abdominal pain, no nausea, no vomiting, no constipation and no diarrhea/loose stools Musculoskeletal: no back pain, no neck pain, no joint pain, no stiffness and no myalgia Integumentary: no rash Neurologic: no gait abnormality, no unsteadiness, no falls and no generalized weakness Physical Exam Constitutional: cooperative; no acute distress Neck: trachea midline, no thyromegaly (no JVD) Respiratory: normal respiratory effort Auscultation: lungs clear to auscultation bilaterally; no crackles, no rales, no rhonchi and no wheezes Cardiovascular: Rate/Rhythm: + tachycardic and + irregularly irregular Heart Sounds: normal S1 and normal S2 Extremities: no edema Gastrointestinal (Abdomen): Inspection/Auscultation: abdomen normal to inspection Percussion/Palpation: abdomen soft; abdomen nontender, no guarding, abdomen not rigid and no hepatosplenomegaly Skin: no rashes, warm and dry Results & Data Results & Data ([facility]) Vital Signs (Past 12 Hours) Vital Signs Temp Pulse Pulse Resp BP BP Pulse Ox 06/03/21 11:30 108 H 16 100/84 95 06/03/21 11:00 120 H 17 88/72 L 94 06/03/21 10:40 99 H 20 94/77 L 97 06/03/21 10:35 115 H 115 H 20 101/69 101/69 98 06/03/21 10:30 36.5 C 112 H 17 108/87 96 06/03/21 10:25 121 H 106/87 06/03/21 09:53 102 H 20 99/55 L 98 Laboratory Results Laboratory Results WBC 11.75 K/uL (4.8-10.8) H 06/03/21 10:14 RBC 5.25 M/uL (4.7-6.1) 06/03/21 10:14 Hgb 18.1 g/dL (14.0-18.0) H 06/03/21 10:14 Hct 52.9 % (42-52) H 06/03/21 10:14 MCV 100.8 fL (80-100) H 06/03/21 10:14 MCH 34.5 pg (25-34) H 06/03/21 10:14 MCHC 34.2 g/dL (32-36) 06/03/21 10:14 RDW Std Deviation 52.4 fL (36.4-46.3) H 06/03/21 10:14 RDW Coeff of Pat 14.3 % (11.5-14.5) 06/03/21 10:14 Plt Count 235 K/uL (130-400) 06/03/21 10:14 MPV 11.6 fL (7.4-10.4) H 06/03/21 10:14 Immature Gran % (Auto) 0.4 % 06/03/21 10:14 Neut % (Auto) 57.9 % 06/03/21 10:14 Lymph % (Auto) 27.5 % 06/03/21 10:14 [place] % (Auto) 12.3 % 06/03/21 10:14 Eos % (Auto) 1.6 % 06/03/21 10:14 Baso % (Auto) 0.3 % 06/03/21 10:14 Neut # (Auto) 6.80 K/uL (1.4-6.5) H 06/03/21 10:14 Lymph # (Auto) 3.23 K/uL (1.2-3.4) 06/03/21 10:14 [place] # (Auto) 1.45 K/uL (0.11-0.59) H 06/03/21 10:14 Eos # (Auto) 0.19 K/uL (0-0.5) 06/03/21 10:14 Baso # (Auto) 0.03 K/uL (0-0.2) 06/03/21 10:14 Immature Gran # (Auto) 0.05 K/uL (0.00-0.02) H 06/03/21 10:14 Sodium 133 mmol/L (136-145) L 06/03/21 10:14 Potassium 5.4 mmol/L (3.5-5.1) H 06/03/21 12:09 Chloride 102 mmol/L (98-107) 06/03/21 10:14 Carbon Dioxide 18 mmol/L (21-32) L 06/03/21 10:14 Anion Gap 13 (3-11) H 06/03/21 10:14 BUN 25 mg/dl (6-23) H 06/03/21 10:14 Creatinine 1.23 mg/dl (0.6-1.4) 06/03/21 10:14 Est Cr Clr Drug Dosing 60.2 ml/min 06/03/21 10:14 Est GFR ( Amer) 75.1 ml/min 06/03/21 10:14 Est GFR (Non-Af Amer) 64.8 ml/min 06/03/21 10:14 BUN/Creatinine Ratio 20.3 (10-20) H 06/03/21 10:14 Glucose 128 mg/dl (70-99(Fasting)) H 06/03/21 10:14 Calcium 9.9 mg/dl (8.5-10.1) 06/03/21 10:14 Total Bilirubin 1.4 mg/dl (0.2-1.0) H 06/03/21 10:14 AST 19 U/L (13-39) 06/03/21 12:09 ALT 27 U/L (7-52) 06/03/21 10:14 Alkaline Phosphatase 93 U/L (34-104) 06/03/21 10:14 Troponin I 0.04 ng/ml (0-0.04) 06/03/21 10:14 B-Natriuretic Peptide 1512 pg/ml (0-100) H 06/03/21 10:14 Total Protein 8.1 gm/dl (6.0-8.3) 06/03/21 10:14 Albumin 4.5 gm/dl (3.4-5.0) 06/03/21 10:14 Globulin 3.6 gm/dl (2.5-4.0) 06/03/21 10:14 Albumin/Globulin Ratio 1.3 (0.9-2) 06/03/21 10:14 Lipase 32 U/L (11-82) 06/03/21 10:14 SARS-CoV-2, RNA, NAAT NEGATIVE (NEGATIVE) 06/03/21 10:29 Impressions Chest X-Ray 06/03/21 10:17 XR chest 1V portable HISTORY: 55 years-old Male Chest Pain acute atypical chest pain COMPARISON: Chest CT 06/16/2018, chest radiograph 05/12/2018 TECHNIQUE: Portable AP view of the chest FINDINGS: Moderate enlargement of the cardiac silhouette. No pneumothorax, pleural effusion, airspace consolidation or overt pulmonary edema. The bones of the chest appear grossly intact. Healed chronic fracture deformity of the proximal right humerus. IMPRESSION: Cardiomegaly without acute process. ACT 112: Negative or not required by law. The above report was generated using voice recognition software. It may contain grammatical, syntax or spelling errors. Electronically signed by: Ovidio Luna M.D. 06/03/2021 10:33 AM PG Care Time/CCT Total # of Minutes Spent Total Time Spent with Patient: Total time spent is greater than 50% in coordination of care (as documented) at patient's floor/unit and/or counseling patient: Coding Level of Care Code INT OBSERVATION CARE 70M LVL 3 Diagnoses Benign essential hypertension I10 Cardiomyopathy I42.9 Cardiomyopathy type: unspecified Atrial fibrillation with RVR I48.91 (1) Cardiomyopathy Cardiomyopathy type: unspecified Qualified Code(s): I42.9 - Cardiomyopathy, unspecified
[2021-06-03] MEDS ORDERED: DIGOXIN 500 MCG/2 ML AMP IV ONE (14:07)
[2021-06-03] MEDS ORDERED: ACETAMINOPHEN 325 MG TAB PO PRN (14:43)
[2021-06-03] MEDS ORDERED: ONDANSETRON INJ 2 MG/ML 2 ML VIAL IV PRN (14:43)
[2021-06-03] MEDS ORDERED: FUROSEMIDE 20 MG TAB PO PRN (14:43)
[2021-06-03] MEDS ORDERED: DIGOXIN 250 MCG in SYRINGE 9 ML IV ONE (15:30)
[2021-06-04 07:20] LABS: Basophils # (auto) 0.02 K/uL (0-0.2); Basophils % (auto) 0.2 %; Eosinophils # (auto) 0.23 K/uL (0-0.5); Eosinophils % (auto) 2.4 %; Hematocrit (blood only) 47.6 % (42-52); Immature Granulocytes # (auto) 0.01 K/uL (0.00-0.02); Immature Granulocytes % (auto) 0.1 %; Lymphocytes # (auto) 2.38 K/uL (1.2-3.4); Lymphocytes % (auto) 25.2 %; Mean Corpuscular Hemoglobin 33.4 pg (25-34); Mean Corpuscular Hgb Conc 33.6 g/dL (32-36); Mean Corpuscular Volume 99.4 fL (80-100); Mean Platelet Volume 11.8 fL (7.4-10.4); Monocytes # (auto) 1.09 K/uL (0.11-0.59); Monocytes % (auto) 11.6 %; Neutrophils % (auto) 60.5 %; Platelet Count 216 K/uL (130-400); RDW Coefficient of Variation 14.2 % (11.5-14.5); RDW Standard Deviation 51.7 fL (36.4-46.3); Red Blood Count 4.79 M/uL (4.7-6.1); White Blood Count 9.43 K/uL (4.8-10.8)
[2021-06-04 07:47] LABS: BUN Creatinine Ratio 24.8 (10-20); Calcium 8.9 mg/dl (8.5-10.1); Chol HDL Ratio 5.4 (0-5); Creatinine Clr Calc Pharmacy 60.8 ml/min; Est GFR (African American) 76.6 ml/min; Est GFR (Non-African American) 66.1 ml/min; Magnesium 1.9 mg/dl (1.7-2.4); Potassium 4.8 mmol/L (3.5-5.1)
--- NOTE | 2021-06-04 08:56 | Hospitalist Progress Note ---
Date of Service June 04, 2021 Assessment & Plan (1) Atrial fibrillation with rapid ventricular response: Plan: (1) Atrial fibrillation with RVR: Plan: Patient was given a dose of IV metoprolol with minimal effect We will give digoxin 0.25 mg x 1 as a loading dose. Consider starting Cardizem drip if no relief with digoxin Continue oral Toprol XL at 100 mg daily We will continue Xarelto for anticoagulation Consult cardiology for further recommendations (2) Cardiomyopathy: Plan: Does not appear to be in active CHF at this time Last 2D echo is from 11/2019. Will defer to cardiology if they feel this needs to be updated as an inpatient (2) Congestive heart failure: (3) Gout: (4) Benign essential hypertension: Admission and Anticipated Discharge Date Admission Date: June 03, 2021 Subjective -afib since 2017, shocked once back then lasted for 3 days. -has been on xarelto and digoxin since, was taken off digoxin last month -takes lasix PRN, last dose 2 days ago, has been taking it about 1x/wk over the last month -progressive SOB since coming off digoxin, worse on exertion but has been sleeping a lot lately, has tried lasix 40mg with none/minimal to relief -wasn't taking xarelto for over a year due to repetitive nose bleeds, started back on it 2 weeks ago Review of Systems Review of Systems: Constitutional: +fatigue. denies fevers CV: denies chest pain, palpitations Resp: +SOB. denies cough GI: denies abdominal pain, nausea, vomiting, constipation, diarrhea : denies pain with urination, change in urinary frequency Skin: denies new rash Physical Exam Constitutional: WD/WN, vitals as above Respiratory: normal respiratory effort, lungs clear to auscultation Cardiovascular: Irregularly irregular rhythm, tachycardic, no JVD, no peripheral edema Skin: no rashes, warm and dry Psychiatric: A+Ox3, euthymic affect Results & Data Results & Data ([facility]) Vital Signs (Past 12 Hours) Vital Signs Temp Pulse Pulse Resp BP Pulse Ox 06/04/21 07:22 94 H 06/04/21 06:33 36.5 C 78 18 105/75 96 06/04/21 03:16 36.6 C 84 20 113/55 L 97 06/04/21 00:06 36.2 C L 102 H 20 94/68 L 95 06/03/21 23:14 96 H
[2021-06-04] MEDS ORDERED: NON-FORMULARY MEDICATION (Calcium-Magnesium-Zinc 333-133-5 mg Tablet) PO SCH (09:00)
[2021-06-04] MEDS ORDERED: MULTIVITAMIN TAB PO SCH (09:00)
[2021-06-04] MEDS ORDERED: SPIRONOLACTONE 25 MG TAB PO SCH (09:00)
[2021-06-04] MEDS ORDERED: RIVAROXABAN 20 MG TAB PO SCH (09:00)
[2021-06-04] MEDS ORDERED: METOPROLOL SUCC 50MG EXT REL TAB PO SCH (09:00)
[2021-06-04] MEDS ORDERED: TELMISARTAN 40 MG TAB PO SCH (09:00)
--- NOTE | 2021-06-04 11:41 | Electrocardiogram Report ---
Test Reason : Blood Pressure : / mmHG Vent. Rate : 087 BPM Atrial Rate : 441 BPM P-R Int : 000 ms QRS Dur : 098 ms QT Int : 384 ms P-R-T Axes : 000 -74 010 degrees QTc Int : 462 ms Atrial fibrillation with premature ventricular or aberrantly conducted complexes Left axis deviation Low voltage QRS Cannot rule out Anterior infarct (cited on or before 14-APR-2018) Abnormal ECG When compared with ECG of 03-JUN-2021 10:10, Vent. rate has decreased BY 43 BPM Nonspecific T wave abnormality now evident in Inferior leads Confirmed by Dewayne Beal ([id number]) on 06/04/2021 11:40:27 AM Referred By: REFERRED SELF Confirmed By:Dewayne Beal
--- NOTE | 2021-06-04 11:52 | Discharge Summary ---
Date of Service June 04, 2021 Admission HPI Per Admitting Provider This is a 55-year-old male with past no history of atrial fibrillation, cardiomyopathy with an EF of 30-35% that presents emergency room with a chief complaint of shortness of breath. Patient is pleasant a good historian. Patient tells me he has noted some shortness of breath and, more commonly, dyspnea on exertion for the past 3 weeks. He notes he has been getting more more winded with even simple activities. He denies any infection symptoms such as fever or chills, cough. He denies any weight changes or swelling. He also denies any palpitations. He says that the dyspnea on exertion has been getting worse to the point that he can hardly perform any activities which prompted him to come to the hospital. In the emergency room, is found to be in rapid atrial fibrillation with a rate in the 130s. He was given a dose of metoprolol 5 mg IV x1 the seem to improve his rate to [id number]. At time of evaluation, patient appears to be comfortable. Of note, he does tell me that his costume specialist discontinued his digoxin approximately 1 month ago and he feels that this may have contributed to his rapid heart rate. Principal Diagnosis Afib with RVR Discharge Exam Constitutional WD/WN, vitals as above Respiratory normal respiratory effort, lungs clear to auscultation Cardiovascular Irregularly irregular rhythm, tachycardic, no JVD, no peripheral edema Skin no rashes, warm and dry Psychiatric A+Ox3, euthymic affect Discharge Data Allergies Allergy/AdvReac Type Severity Reaction Status Date / Time No Known Allergies Allergy Verified 06/03/21 12:05 Consultations 06/03/21 11:57 ED Decision to Admit Stat Ordered Studies Laboratory Results WBC 9.43 K/uL (4.8-10.8) 06/04/21 06:19 RBC 4.79 M/uL (4.7-6.1) 06/04/21 06:19 Hgb 16.0 g/dL (14.0-18.0) 06/04/21 06:19 Hct 47.6 % (42-52) 06/04/21 06:19 MCV 99.4 fL (80-100) 06/04/21 06:19 MCH 33.4 pg (25-34) 06/04/21 06:19 MCHC 33.6 g/dL (32-36) 06/04/21 06:19 RDW Std Deviation 51.7 fL (36.4-46.3) H 06/04/21 06:19 RDW Coeff of Pat 14.2 % (11.5-14.5) 06/04/21 06:19 Plt Count 216 K/uL (130-400) 06/04/21 06:19 MPV 11.8 fL (7.4-10.4) H 06/04/21 06:19 Immature Gran % (Auto) 0.1 % 06/04/21 06:19 Neut % (Auto) 60.5 % 06/04/21 06:19 Lymph % (Auto) 25.2 % 06/04/21 06:19 [place] % (Auto) 11.6 % 06/04/21 06:19 Eos % (Auto) 2.4 % 06/04/21 06:19 Baso % (Auto) 0.2 % 06/04/21 06:19 Neut # (Auto) 5.70 K/uL (1.4-6.5) 06/04/21 06:19 Lymph # (Auto) 2.38 K/uL (1.2-3.4) 06/04/21 06:19 [place] # (Auto) 1.09 K/uL (0.11-0.59) H 06/04/21 06:19 Eos # (Auto) 0.23 K/uL (0-0.5) 06/04/21 06:19 Baso # (Auto) 0.02 K/uL (0-0.2) 06/04/21 06:19 Immature Gran # (Auto) 0.01 K/uL (0.00-0.02) 06/04/21 06:19 Sodium 134 mmol/L (136-145) L 06/04/21 06:19 Potassium 4.8 mmol/L (3.5-5.1) 06/04/21 06:19 Chloride 104 mmol/L (98-107) 06/04/21 06:19 Carbon Dioxide 20 mmol/L (21-32) L 06/04/21 06:19 Anion Gap 10 (3-11) 06/04/21 06:19 BUN 30 mg/dl (6-23) H 06/04/21 06:19 Creatinine 1.21 mg/dl (0.6-1.4) 06/04/21 06:19 Est Cr Clr Drug Dosing 60.8 ml/min 06/04/21 06:19 Est GFR ( Amer) 76.6 ml/min 06/04/21 06:19 Est GFR (Non-Af Amer) 66.1 ml/min 06/04/21 06:19 BUN/Creatinine Ratio 24.8 (10-20) H 06/04/21 06:19 Glucose 80 mg/dl (70-99(Fasting)) 06/04/21 06:19 Calcium 8.9 mg/dl (8.5-10.1) 06/04/21 06:19 Magnesium 1.9 mg/dl (1.7-2.4) 06/04/21 06:19 Total Bilirubin 1.4 mg/dl (0.2-1.0) H 06/03/21 10:14 AST 19 U/L (13-39) 06/03/21 12:09 ALT 27 U/L (7-52) 06/03/21 10:14 Alkaline Phosphatase 93 U/L (34-104) 06/03/21 10:14 Troponin I 0.04 ng/ml (0-0.04) 06/03/21 10:14 B-Natriuretic Peptide 1512 pg/ml (0-100) H 06/03/21 10:14 Total Protein 8.1 gm/dl (6.0-8.3) 06/03/21 10:14 Albumin 4.5 gm/dl (3.4-5.0) 06/03/21 10:14 Globulin 3.6 gm/dl (2.5-4.0) 06/03/21 10:14 Albumin/Globulin Ratio 1.3 (0.9-2) 06/03/21 10:14 Triglycerides 118 mg/dl (0-150) 06/04/21 06:19 Cholesterol 173 mg/dl (0-200) 06/04/21 06:19 LDL Cholesterol, Calc 117 mg/dl 06/04/21 06:19 VLDL Cholesterol, Calc 24 mg/dl (0-30) 06/04/21 06:19 HDL Cholesterol 32 mg/dl 06/04/21 06:19 Cholesterol/HDL Ratio 5.4 (0-5) H 06/04/21 06:19 Lipase 32 U/L (11-82) 06/03/21 10:14 Hepatitis C Ab Screen Neg (Neg) 06/04/21 06:19 SARS-CoV-2, RNA, NAAT NEGATIVE (NEGATIVE) 06/03/21 10:29 Impressions Chest X-Ray 06/03/21 10:17 XR chest 1V portable HISTORY: 55 years-old Male Chest Pain acute atypical chest pain COMPARISON: Chest CT 06/16/2018, chest radiograph 05/12/2018 TECHNIQUE: Portable AP view of the chest FINDINGS: Moderate enlargement of the cardiac silhouette. No pneumothorax, pleural effusion, airspace consolidation or overt pulmonary edema. The bones of the chest appear grossly intact. Healed chronic fracture deformity of the proximal right humerus. IMPRESSION: Cardiomegaly without acute process. ACT 112: Negative or not required by law. The above report was generated using voice recognition software. It may contain grammatical, syntax or spelling errors. Electronically signed by: Ovidio Luna M.D. 06/03/2021 10:33 AM Hospital Course (1) Atrial fibrillation with rapid ventricular response: (1) Atrial fibrillation with RVR: -presented with SOB and fatigue over last month since stopping digoxin -ER: was given a dose of IV metoprolol with minimal effect; also given digoxin 0.25mg x1 as a loading dose -HR stable, minimally elevated at 94; BP 105/75 -he is asymptomatic without dyspnea on exertion -continue Topral-XL 100mg daily -we will also restart his previous digoxin dose 125mcg daily -would recommend periodically checking heart rate and BP daily -he was also not taking xarelto for most of the past year due to recurrent nose bleeds, encourage daily use to decrease stroke risk -f/u with cardiology this week for further management (2) Systolic CHF -does not appear to be in active CHF at this time -last 2D echo is from 11/2019: EF 30-35% -repeat echo: declining LV systolic function, EF 20-25% (2) Congestive heart failure: (3) Gout: (4) Benign essential hypertension: Total Time Total Time Spent Total Time Spent (In Minutes): <30 Discharge Plan Discharge Items Patient Disposition: Home - Self-Care Reason For Visit: rapid af Discharge Diagnosis: Afib w/ RVR Activity: Per Instructions section Non-emergency contact: Primary Care Provider and Cook Helper Fruit Call non-emergency contact if: you have any medication questions and your symptoms worsen Follow-up/Referrals: Christopher Parra III, CRNP [Primary Care Provider] - Mikel Davis MD [Physician] - Diet: Heart Healthy Addtl Attending Provider Instructions: You were admitted to the hospital for atrial fibrillation with rapid ventricular response causing an elevated heart rate. You were treated with 1 loading dose of digoxin in the ER along with your home medications. Your heart rate is moderately controlled at the moment but we will go ahead and restart your previous digoxin dose. You should follow up with cardiology in the next week for further recommendations. A discharge summary will be sent to your primary care physician to ensure continuity of care. Please bring this discharge summary with you to your next office appointment so that your provider can review it at that time. Follow-up appointments: Make a follow-up appointment with your PCP and cardiologst within the next week. It is very important that you follow up with them shortly after discharge from the hospital. We have requested a follow-up appointment with your primary care physician and costume specialist within one week of discharge. Please call their office if you do not hear from them. Keep all your follow-up appointments as already scheduled. If you cannot make an appointment, notify your provider. Medications: Your medication list has been reviewed and reconciled upon discharge to ensure accuracy and continuity of care. An updated list of all your medications is included with your hospital discharge paperwork. Please review this list closely,and make note of any changes. Continue taking Toprol-XL 100mg each morning. (please note, originally before we had talked, Dr Leyva had worked towards the plan of increasing the toprol -- i've changed the orders and the instructions, but if Moises has an additional 50mg Rx for toprol in addition to the digoxin - please don't get it filled) We'll add back in the digoxin at 125mcg daily Take your medications as instructed; do not skip a dose of your medicines. Make sure all of your doctors know every medicine you are taking (including ucpt-sua-zfrnrvb medicines, vitamins,and supplements). Call your primary care provider before taking any new medicines (including xstq-irr-nthesis medicines, vitamins, and supplements),because some of these may interact with your current medications, or may make your symptoms worse. Tell your primary care provider if you cannot afford your medications. CONTACT YOUR PRIMARY CARE PROVIDER if you experience any of the following: Fever, increased SOB, chest pain, palpitations Difficulty following your treatment plan, or difficulty taking medications. CALL 911 OR GO TO THE EMERGENCY DEPARTMENT if you experience any of the following: Sudden, severe abdominal pain or nausea/vomiting Severe chest pain, or chest pain that radiates (moves)to your jaw or arm Sudden, severe shortness of breath or difficulty breathing Thank you for allowing us to participate in your care. Pending Studies at Discharge: No Stand-Alone Forms: [facility], Smoking Cessation Medications and DC Order Prescriptions: New digoxin 125 mcg (0.125 mg) tablet 125 mcg PO DAILY Qty: 30 RF: 0 Continued telmisartan [Micardis] 40 mg tablet 40 mg PO QAM Qty: 90 RF: 3 metoprolol succinate 100 mg tablet extended release 24 hr 100 mg PO QAM Qty: 90 RF: 1 multivitamin Tablet 1 tab PO QAM RF: 0 furosemide 20 mg tablet 20 mg PO DAILY PRN (Reason: Shortness Of Breath) RF: 0 lbzzspj-puqgmxhnv-vybx 333-133-5 mg Tablet 1 tab PO QAM RF: 0 Xarelto 20 mg tablet 20 mg PO QAM RF: 0 spironolactone 25 mg tablet 25 mg PO QAM RF: 0 Discharge Orders: Discharge Order (Routine); Ordered 06/04/21 Ordered By: Munir Kwan Admission Data Admit Date/Time: 06/03/21 14:07 Attending Provider: Munir Kwan Admit Provider: Ye Menon Primary Care Provider: Christopher Parra III Other Providers: Ye Menon Other Interventions: Discharge Summary Assessment (RN) Last Done: 06/04/21 15:14 Supervising Physician Co-Signing Physician Notes I personally examined the patient and verified all sifuentes points of history and exam, discussed case, and agree with decision making with Dr Leyva feeling better HR better no YOUNGBLOOD or dyspnea at rest. vitals noted nad heent nc at breathing unlabored no accessory muscle use good effort. Heart rates nineties at rest. With ambulation he got no higher than about 120. A. fib/RVRnotes that he just stopped digoxin about a month agohe/cardiology thought he was doing well enough it was possible he did not need it. Unfortunately it seems with less rate control is right gotten faster. We discussed options of resuming digoxin versus increasing metoprolol, and given that he was on the digoxin before, it was working well, and he tolerated it wellhe opted for this. On review of records it looks like he was on 125 mcg beforeresumed. Dyspnea improved with rate controlso while I was suspicious about the possibility of acute combined CHF from RVRthis appears to have not been the case. Anticoagulated with Xareltoclaims adherence to me. Stable for home, outpatient cardiology follow-up. Otherwise as above. Resident Activity Tracking Resident Involvement: Resident Care Provided Care Provided: Adult Hospital Medicine
--- NOTE | 2021-06-04 12:33 | XCELERA ---
[id number] [id number]
--- NOTE | 2021-06-04 18:24 | Billing Data ---
Date of Service June 04, 2021 Coding Level of Care Code D/C DAY MANAGEMENT <30 MINS
== END 2021-06-04 15:45 | disposition home or self-care (01) | DRG 309 ==
LOC: ED 09:50 → SUATTDRO 14:07 → 2S 14:07

== ENCOUNTER 2022-01-30 09:14 | Inpatient (IN) ==
--- NOTE | 2021-12-22 09:54 | PAT Medication Instructions ---
Medication Instructions Date of Service December 22, 2021 Home Medications Medication Instructions Recorded metoprolol succinate 100 mg 100 mg PO QAM #90 tabs 06/10/21 tablet,extended release 24 hr rivaroxaban 20 mg tablet (Xarelto) 20 mg PO QAM #30 tabs 07/07/21 sacubitril 97 mg-valsartan 103 mg 1 tab PO BID #180 tabs 08/05/21 tablet (Entresto) meloxicam 15 mg tablet 15 mg PO DAILY PRN pain #30 tabs 11/11/21 [id number]-gfebnwizc-fmzy 333 mg-133 mg-5 mg tablet 1 tab PO QAM furosemide 20 mg tablet 20 mg PO DAILY PRN Shortness Of Breath multivitamin 1 tab PO QAM metoprolol succinate 100 mg tablet,extended release 24 hr 100 mg PO QAM rivaroxaban 20 mg tablet (Xarelto) 20 mg PO QAM sacubitril 97 mg-valsartan 103 mg tablet (Entresto) 1 tab PO BID meloxicam 15 mg tablet 15 mg PO DAILY PRN pain allopurinol 300 mg tablet 300 mg PO QAM digoxin 125 mcg (0.125 mg) tablet 125 mcg PO QAM spironolactone 25 mg tablet 25 mg PO QAM ASK your surgeon for instructions meloxicam 15 mg tablet 15 mg PO DAILY PRN pain ASK your prescriber and surgeon rivaroxaban 20 mg tablet (Xarelto) 20 mg PO QAM DO NOT take the morning of surgery [id number]-ftguukaer-mbvo 333 mg-133 mg-5 mg tablet 1 tab PO QAM furosemide 20 mg tablet 20 mg PO DAILY PRN Shortness Of Breath multivitamin 1 tab PO QAM sacubitril 97 mg-valsartan 103 mg tablet (Entresto) 1 tab PO BID (unless told otherwise by prescriber) spironolactone 25 mg tablet 25 mg PO QAM Take morning of surgery With a small sip of water, OTHERWISE NOTHING TO EAT OR DRINK AFTER MIDNIGHT: metoprolol succinate 100 mg tablet,extended release 24 hr 100 mg PO QAM allopurinol 300 mg tablet 300 mg PO QAM digoxin 125 mcg (0.125 mg) tablet 125 mcg PO QAM Take evening before surgery furosemide 20 mg tablet 20 mg PO DAILY PRN Shortness Of Breath (if needed) sacubitril 97 mg-valsartan 103 mg tablet (Entresto) 1 tab PO BID Other Notes If you have any questions please call us at [phone] or [phone] or [phone] or [phone]
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
[~2022-01-30 09:14] MED LIST changes: +ACETAMINOPHEN 500 MG TAB PO SCH; +BUPIVACAINE 0.5 % 5 MG/1 ML PF 10ML VIAL ONE; +GABAPENTIN 600 MG DOSE PO SCH; +LR 15ML/HR IV SCH; +LR 60ML/HR IV SCH; -MULTTAB58 PO; +ORTHO JOINT MIX INFIL SCH; +TRANEXAMIC ACID 1,000 MG **IV Intra-op IV SCH; +TRANEXAMIC ACID 1,000 MG **IV Pre-op IV SCH; +ceFAZolin 2000MG 2,000 MG/15 ML SYR IV SCH; +dexAMETHasone 4 MG TAB PO SCH
[2022-01-30] MEDS ORDERED: DEXAMETHASONE SOD INJ 4 MG/ML VIAL ONE (10:09)
[2022-01-30] MEDS ORDERED: MIDAZOLAM HCL 1 MG/ML 2ML VIAL ONE (10:09)
[2022-01-30] MEDS ORDERED: LIDOCAINE 2% MPF LOCAL 5 ML VIAL INFIL ONE (10:09)
[2022-01-30] MEDS ORDERED: PROPOFOL IV EMULSION 10 MG/ML 20 ML VIAL IV ONE (10:09)
[2022-01-30] MEDS ORDERED: ONDANSETRON INJ 2 MG/ML 2 ML VIAL ONE (10:09)
[2022-01-30] MEDS ORDERED: fentaNYL citrate 100 MCG/2 ML VIAL ONE (10:10)
--- NOTE | 2022-01-30 10:28 | History & Physical Bridge Note ---
Date of Service January 30, 2022 History & Physical Bridge Note I have examined the patient, reviewed the History & Physical and in the interval since the performance of the History & Physical I have noted the following changes of clinical significance: no changes noted
[2022-01-30] MEDS ORDERED: fentaNYL citrate 100 MCG/2 ML VIAL IV PRN (10:57)
[2022-01-30] MEDS ORDERED: ATROPINE SULFATE 0.1 MG/ML 10ML SYR IV PRN (10:57)
[2022-01-30] MEDS ORDERED: ePHEDrine sulfate 50 MG/ML AMP IV PRN (10:57)
[2022-01-30] MEDS ORDERED: ONDANSETRON INJ 2 MG/ML 2 ML VIAL IV PRN ×2 (10:57→14:16)
[2022-01-30] MEDS ORDERED: ORTHO JOINT ANESTHETIC ONE (11:17)
[2022-01-30] MEDS ORDERED: ePHEDrine sulfate 50 MG/ML AMP ONE (12:26)
[2022-01-30] MEDS ORDERED: PHENYLEPHRINE 100MCG/ML 5ML SYR ONE (12:27)
--- NOTE | 2022-01-30 12:54 | Operative Report ---
PG Post Operative Report Pre & Post Diagnosis Operation Date: 01/30/22 11:40 Pre-Op Diagnosis: Cuff tear arthropathy of the right shoulder with tendinopathy of the long head of the biceps tendon Post-Op Diagnosis: Cuff tear arthropathy of the right shoulder with tendinopathy of the long head of the biceps tendon I identified the patient and participated in the time-out.: Yes Procedure Operation Date: 01/30/22 11:40 Actual Procedures p Right Reverse Total Shoulder Arthroplasty(Right) with open biceps tenodesis as a distinct and separate procedure (modifier 59)- Fermín Nava DO Surgeon Fermín Nava DO Operation Manager Fermín Maharaj PA-C Estimated Blood Loss 250 Findings Consistent with Post-Op Diagnosis Specimens Right humeral head Description of Procedure A CPT code modifier 59: The long head of the biceps tendon was enlarged and inflamed consistent with tendinopathy. A tenodesis was opted. This was a separate and distinct portion of the procedure. For these reasons, a CPT code modifier 59 will be added to this case. Implants used: I used a [employer]omet Comprehensive reverse total shoulder arthroplasty system with a size 11 press fit micro humeral stem, a +6 offset humeral tray and a standard humeral bearing, a 25 mm small augment baseplate with a 6.5 mm central screw and superior and inferior locking screws, and a size 36 mm eccentric glenosphere. Bob arrived at [facility] for the above procedure. He was seen in the preoperative holding area and the operative extremity was identified and signed. He was given a preoperative antibiotic, TXA, and an interscalene nerve block. He was taken back to the operating room, laid on table in supine position, and put under general anesthesia. He was then put into the beachchair position. The shoulder was then prepped and draped in sterile fashion. A timeout was done and the patient and the operative extremity was properly identified. A deltopectoral approach was used. Dissection was taken down through the fascia and the deltoid was retracted laterally and the conjoined tendon was retracted medially. The anterior shoulder was exposed. The biceps groove was opened up and the biceps tendon was examined extensively. The biceps tendon demonstrated enlargement and inflammatory changes consistent with longstanding inflammation in the context of osteoarthritis and cuff arthropathy. The long head of the biceps tendon was then tenodesed to the upper border of the pectoralis major. This was a separate and distinct portion of the procedure. The subscapularis was then directly released off the lesser tuberosity with a peel technique. The inferior capsule was released and the humeral head was dislocated. A canal finding reamer was sent down the center of the humeral canal. Sequential reaming up to a size 11 reamer was done. Off that reamer, a proximal humeral resection guide was placed. The proximal humerus was resected at 135 of inclination and 25 of retroversion. Osteophytes were then removed and the glenoid was exposed. Time was spent doing a complete capsular and labral re lease. The glenoid guide was then placed in the inferior aspect of the glenoid. A 3.2 mm Steinmann pin was then placed into the glenoid vault at 10 of inclination. The glenoid baseplate was then reamed. The final size 25 mm small augment baseplate was then impacted in the place. A 6.5 mm central screw was then placed followed by superior and inferior locking screws. A 36 mm eccentric glenosphere was then impacted into place. Surrounding soft tissues were then injected with 100 cc an orthopedic pain control cocktail. The proximal humerus was then exposed. Sequential broaching of the humerus up to a size 11 broach was done. Off that broach a +6 offset humeral tray was trialed. The shoulder was then reduced, brought through a full range of motion, and felt to be stable. The shoulder was then dislocated and the broach was removed. The final size 11 micro press-fit humeral stem was then impacted into place. A standard humeral bearing was then snapped onto a +6 offset humeral tray. The humeral tray was then impacted onto the humeral stem. The shoulder was once again reduced, brought through a full range of motion, and felt to be stable. The subscapularis was then tenodesed back to the lesser tuberosity with transosseous FiberWire sutures and side to side sutures with the arm in 45 of external rotation. A dilute betadyne lavage was then done for 3 minutes. The joint was then irrigated with normal saline solution. Hemostasis was obtained. The interval was closed with 2-0 Vicryl suture. The skin was then closed with 2-0 Vicryl and adina. A Silverlon dressing was placed and the arm was rested in a regular arm sling. He was then extubated and transferred to a hospital bed. He taken to the postanesthesia care unit in stable condition. He tolerated the pr ocedure well. Fermín Maharaj PA-C, was present for the entire procedure. He was critical for patient positioning, prepping, draping, retraction exposure, wound closure and application of sterile dressing. I attest to the content of the Intraoperative Record and any orders documented therein. Any exceptions are noted below.
--- NOTE | 2022-01-30 14:00 | XRay Report ---
XR shoulder RT min 2V routine CLINICAL HISTORY: Post shoulder surgery TECHNIQUE: 2 views of the right shoulder were obtained. Comparison: None available at the time of this dictation. FINDINGS: Patient is status post shoulder arthroplasty with expected postsurgical changes including soft tissue swelling and subcutaneous emphysema. No periarticular lucency or hardware fracture is seen. IMPRESSION: Expected postoperative appearance status post placement of shoulder arthroplasty. ACT 112: Negative or not required by law. Electronically signed by: Vance Granados M.D. 01/30/2022 1:59 PM
[2022-01-30] MEDS ORDERED: NALOXONE HCL 0.4 MG/1 ML VIAL/CARP IV PRN (14:16)
[2022-01-30] MEDS ORDERED: bisacodyL 10 MG SUPP PR PRN (14:16)
[2022-01-30] MEDS ORDERED: MAGNESIUM HYDROXIDE SUSP 30 ML UDC PO PRN (14:16)
[2022-01-30] MEDS ORDERED: METOCLOPRAMIDE HCL INJ 5 MG/ML 2 ML VIAL IV PRN (14:16)
[2022-01-30] MEDS ORDERED: HYDROmorphone INJ 0.5 MG/0.5 ML SYR IV PRN (14:16)
[2022-01-30] MEDS ORDERED: oxyCODONE HCL IR 5 MG TAB (IMMEDIATE RELEASE) PO PRN (14:16)
[2022-01-30] MEDS ORDERED: FUROSEMIDE 20 MG TAB PO PRN (14:16)
[2022-01-30] MEDS: SODIUM CHLORIDE 0.9% 1000ML 1,000 ML IV SCH ×2 (14:48→23:32)
--- NOTE | 2022-01-30 15:03 | Anesthesiology Progress Note ---
Date of Service January 30, 2022 Anesthesia Post Procedure Vital Signs Vital Signs: Temp Pulse Pulse Resp BP BP Pulse Ox 01/30/22 14:49 36.5 C 73 16 115/77 96 01/30/22 14:10 36.6 C 66 18 114/80 94 01/30/22 13:55 36.7 C 71 18 116/81 94 01/30/22 13:45 64 20 116/79 94 01/30/22 13:35 76 21 106/82 100 01/30/22 13:25 74 18 107/77 99 01/30/22 13:17 36.0 C L 69 16 130/64 159/101 H 96 01/30/22 09:45 36.5 C 88 18 159/101 H 100 O2 Del Method O2 Flow Rate 01/30/22 14:49 Room Air 01/30/22 14:10 Room Air 01/30/22 13:55 Room Air 01/30/22 13:45 Room Air 01/30/22 13:35 Oxymask 4 01/30/22 13:25 Oxymask 9 01/30/22 13:17 Oxymask 9 01/30/22 09:45 Room Air Transfer of Care Handoff Completed per policy Notes Mental Status: alert / awake / arousable Patient Amnestic to Procedure: Yes Nausea / Vomiting: adequately controlled Pain: adequately controlled Airway Patency, RR, SpO2: stable & adequate BP & HR: stable & adequate Hydration State: stable & adequate Anesthetic Complications: no major complications apparent
[2022-01-30] MEDS: ACETAMINOPHEN 500 MG TAB PO SCH ×2 (15:14→22:08)
[2022-01-30] MEDS: ceFAZolin 2000MG 2,000 MG/15 ML SYR IV SCH (18:36)
[2022-01-30] MEDS: KETOROLAC 30 MG/ML VIAL IV SCH ×2 (18:36→23:32)
[2022-01-30] MEDS ORDERED: SENNA 8.6 MG TAB PO SCH (21:00)
[2022-01-30] MEDS: DOCUSATE SODIUM 100 MG CAP PO SCH (22:08)
[2022-01-30] MEDS: VALSARTAN/SACUBITRIL 103/97MG TAB PO SCH (22:09)
[2022-01-31] MEDS: ceFAZolin 2000MG 2,000 MG/15 ML SYR IV SCH (03:50)
[2022-01-31] MEDS: ACETAMINOPHEN 500 MG TAB PO SCH (06:04)
[2022-01-31] MEDS: KETOROLAC 30 MG/ML VIAL IV SCH (06:06)
[2022-01-31] MEDS ORDERED: dexAMETHasone 4 MG TAB PO SCH (08:00)
--- NOTE | 2022-01-31 08:14 | Orthopedic Progress Note ---
Date of Service January 31, 2022 Assessment & Plan (1) Status post reverse total replacement of right shoulder: Overall he is doing very well. Is not having much pain in the right shoulder. He will be seen by physical therapy today for ambulation and range of motion exercises. He can be discharged home later today. He will follow-up with orthopedics in 2 weeks. Yumiko Rojas was seen and examined at bedside this morning. Overall is doing very well. Is not having any pain in the right shoulder. He was able to get some sleep last night. He has no complaints.. Review of Systems All systems reviewed & are unremarkable except as noted in HPI & below. Physical Exam On physical examination of the right shoulder, the dressing is clean and dry. He is wearing his sling as instructed. The nerve block is still in effect.. Results & Data Results & Data Laboratory Results . Diagnostic Findings Postoperative x-rays of the right shoulder show the prosthesis to be in anatomic alignment without any evidence of fracture, dislocation, or loosening. PG Care Time/CCT Total # of Minutes Spent Total Time Spent with Patient: Total time spent is greater than 50% in coordination of care (as documented) at patient's floor/unit and/or counseling patient: Coding Level of Care Code 91257 Post Operative Follow-Up Diagnoses Status post reverse total replacement of right shoulder Z96.611
--- NOTE | 2022-01-31 08:15 | Discharge Summary ---
Date of Service January 31, 2022 Admission HPI (Per Admitting) Bob is a pleasant 55-year-old male who has been dealing with chronic worsening bilateral shoulder pain. He had bilateral subacromial decompressions by Dr. Tobar in the past. He states that the supraspinatus was unrepairable at that time. He then saw another surgeon in [place] who had him set up to dosuperior capsular reconstruction about 5 years ago. He said he really was not having any pain and that surgery got canceled. He has full function and minimal pain with his shoulders. Pain is gotten worse. He has decreasing range of motion and constant pain in his shoulder. After failing extensive conservative treatment, including multiple injections, he has elected to proceed with a right reverse shoulder arthroplasty. Admission Exam (Per Admitting) Nation the right shoulder, he has about 90 degrees of forward elevation 90 degrees of abduction. He has 4 out of 5 motor strength throughout.. Principal Diagnosis Same as "Discharge Diagnosis" noted below under Discharge Instructions. Discharge Exam On physical examination of the right shoulder, the dressing is clean and dry. Azalia pitts is wearing his sling as instructed. The nerve block is still in effect.. Discharge Data Procedures Performed Operation Date: 01/30/22 11:40 Actual Procedures p Right Reverse Total Shoulder Arthroplasty(Right) - Fermín Nava DO Ordered Studies 01/30/22 05:00 US - OR guided needle placemen Routine Hospital Course (1) Status post reverse total replacement of right shoulder: On January 30, 2022 Bob arrived at [facility] and underwent a right reverse shoulder replacement without complication. He had a general anesthetic and a right interscalene nerve block. Postoperatively he was placed in a sling and transferred to the general orthopedic floors. His hospital course was uneventful. On postop day #1, his vital signs were stable and his pain was well controlled. He was able to participate well with physical therapy doing ambulation and range of motion exercises. He was then discharged home. He will follow-up with orthopedics in 2 weeks. PG Care Time/CCT Total # of Minutes Spent Total Time Spent with Patient: Total time spent is greater than 50% in coordination of care (as documented) at patient's floor/unit and/or counseling patient: Discharge Plan Discharge Items Patient Disposition: Home - Home Health Services Reason For Visit: Right Rotator Cuff Repair Discharge Diagnosis: Right reverse shoulder replacement Activity: Per Instructions section Non-emergency contact: Surgeon Call non-emergency contact if: your wound has increased redness and your wound has increased drainage Follow-up/Referrals: Christopher Parra III, CRNP [Primary Care Provider] - Diet: Regular Addtl Attending Provider Instructions: Activity and Therapy Recommendations: * If you are using [facility] then therapy will be provided at your home until they feel you have accomplished all of your goals. * If you are using [facility] then Physical Therapy will be provided until they feel you are ready to start Outpatient Physical Therapy. * If you are not using home therapy then Outpatient Physical Therapy should start about 3-5 days from your day of surgery. Therapy will last about 8-12 weeks * Wear your sling for 3 weeks, unless otherwise instructed. You may remove your sling to shower and to dress, but otherwise, you should be in your sling at all times, including while sleeping * The shoulder replacement is very stable and you can use your hand while in the sling * You were shown a series of exercises in the hospital. Do these exercises daily including the exercises you were shown in physical therapy. Medications: * Narcotic You will likely be sent home from the hospital with a prescription for the narcotic pain medication that worked best throughout your stay. * Other medications may be prescribed for specific circumstances. If you have any questions, please call the office at . * Resume previous home medications unless otherwise instructed Dressing Care: Leave the Silverlon dressing in place for 7 days. After 7 days you may remove the dressing. If the incision is not draining then you may leave the adina open to air. If there is a little bit of drainage or if the adina are getting stuck on your clothing then cover the incision with a dry dressing. The adina will be removed at your 2 week follow-up appointment. Showering: You may shower with the Silverlon dressing in place. Do not let the shower spray hit the dressing directly. Pat the Silverlon dressing dry. If the dressing becomes wet underneath, then simply remove the dressing. Keep the incision dry until you are 7 days out from the day of surgery. After 7 days you may remove the Silverlon dressing and shower with the adina exposed. Let soapy water run over the adina and pat them dry. Do not scrub or soak the incision. Things To Watch For: * Drainage from the incision site that occurs more than one week after your surgery. * Increased redness at the incision site. * Fever above 102 degrees Fahrenheit. * Unusual chest pain or shortness of breath. * Call [facility] at with any of the above problems Follow-Up Visit: Follow-up with Dr. Nava's PA (Fermín Maharaj) 2-3 weeks after your day of surgery. He will remove your adina and answer any questions. If you have any additional questions or concerns, Dr Nava is usually in the office at the same time and will be available An appointment was probably scheduled when you signed-up for surgery in the office. If you have any questions call More detailed instructions as well as Frequently Asked Questions were provided in a folder by our office when you signed-up for surgery. Please review these instructions when you get home. If you have any further questions or concerns, please feel free to call the office at [phone] Pending Studies at Discharge: No Stand-Alone Forms: [facility], Smoking Cessation Medications and DC Order Prescriptions: New oxycodone-acetaminophen 5-325 mg tablet 1 tab PO Q6H PRN (Reason: pain) Qty: 30 0RF Continued Xarelto 20 mg tablet 20 mg PO QAM Qty: 30 11RF meloxicam 15 mg tablet 15 mg PO DAILY PRN (Reason: pain) Qty: 30 2RF metoprolol succinate 100 mg tablet extended release 24 hr 100 mg PO QAM Qty: 90 3RF Entresto 97-103 mg tablet 1 tab PO BID Qty: 180 3RF multivitamin Tablet 1 tab PO QAM furosemide 20 mg tablet 20 mg PO DAILY PRN (Reason: Shortness Of Breath) [id number] 333-133-5 mg Tablet 1 tab PO QAM spironolactone 25 mg tablet 25 mg PO QAM allopurinol 300 mg tablet 300 mg PO QAM digoxin 125 mcg (0.125 mg) tablet 125 mcg PO QAM Discharge Orders: Discharge Order (Routine); Ordered 01/31/22 Ordered By: Fermín Nava Admission Data Admit Date/Time: 01/30/22 13:13 Attending Provider: Fermín Nava Admit Provider: Fremín Nava Primary Care Provider: Christopher Parra III
[2022-01-31] MEDS: VALSARTAN/SACUBITRIL 103/97MG TAB PO SCH (08:57)
[2022-01-31] MEDS: DOCUSATE SODIUM 100 MG CAP PO SCH (08:58)
[2022-01-31] MEDS ORDERED: allopurinoL 300 MG TAB PO SCH (09:00)
[2022-01-31] MEDS ORDERED: MULTIVITAMIN TAB PO SCH (09:00)
[2022-01-31] MEDS ORDERED: SPIRONOLACTONE 25 MG TAB PO SCH (09:00)
[2022-01-31] MEDS ORDERED: METOPROLOL SUCC 50MG EXT REL TAB PO SCH (09:00)
[2022-01-31] MEDS ORDERED: DIGOXIN 0.125 MG TAB PO SCH (16:00)
[2022-01-31] MEDS ORDERED: RIVAROXABAN 20 MG TAB PO SCH (16:30)
== END 2022-01-31 11:35 | disposition home health service (06) | DRG 483 ==
LOC: ASU 09:14 → 3E 13:13